=== PATIENT | female | born 1930 | race Caucasian/White ===

== ENCOUNTER 2016-09-25 15:30 | Inpatient (IN) | payer MEDICARE, BC ==
[~2016-09-25] VITALS: Ht 157.5 cm; Wt 65.3 kg
[~2016-09-25 15:30] MED LIST: ADVAIR 250-501 EACH INH; ALDACTONE25 MG PO; ASPIR 8181 MG PO; COZAAR50 MG PO; KLOR-CON M2020 MEQ PO; LASIX 40 MG TAB40 MG PO; LUTEIN-ZEAXANT1 EACH PO; METOLAZONE5 MG PO; METOPROLOL TAR100 MG PO; NYSTATIN1 EAC1 PO; PROBIOTIC1 EAC2 PO; SIMVASTATIN20 MG PO; SINGULAIR10 MG PO; SPIRIVA HANDIH18 MCG INH; SYNTHROID88 MCG PO; TOPROL XL50 MG PO; TRAVATAN Z OP; VENTOLIN/PROVE0.5 ML INH; ZYLOPRIM 100 M100 MG PO
[2016-09-25 15:57] LABS: HEMOGLOBIN 11.7 gm/dl (12.3-15.3); RED BLOOD COUNT 3.67 M/UL (4.00-5.10); WHITE BLOOD COUNT 13.5 K/UL (4.5-11.0)
[2016-09-25 16:14] LABS: BUN/CREATININE RATIO 39 (0-10)
[2016-09-26 07:33] LABS: RED BLOOD COUNT 3.17 M/UL (4.00-5.10); WHITE BLOOD COUNT 9.2 K/UL (4.5-11.0)
[2016-09-26] MEDS ORDERED: FERROUS SULFAT325 MG PO (15:14)
[2016-09-26] MEDS ORDERED: SPIRIVA HANDIH18 MCG INH (15:16)
[2016-09-27 04:35] LABS: HEMOGLOBIN 9.9 gm/dl (12.3-15.3); RED BLOOD COUNT 3.18 M/UL (4.00-5.10); WHITE BLOOD COUNT 10.7 K/UL (4.5-11.0)
[2016-09-28 04:27] LABS: RED BLOOD COUNT 3.17 M/UL (4.00-5.10); WHITE BLOOD COUNT 10.2 K/UL (4.5-11.0)
[2016-09-28] MEDS ORDERED: LEVAQUIN750 MG PO (12:01)
[2016-09-28] MEDS ORDERED: MEDROL DOSEPAK 24 MG PO (12:07)
== END 2016-09-28 13:14 | disposition home health service (06) | DRG 871 ==
LOC: ER1 15:30 → ZEROF 17:54 → PROG CARE 09-26 14:37
PROVIDERS: Emergency Medicine; ADMIT Internal Medicine
PROC: 5A09357 Assistance with Respiratory Ventilation, Less than 24 Consecutive Hours, Continuous Positive Airway Pressure (ICD-10-PCS; principal; 2016-09-25)
DX: A41.9 Sepsis, unspecified organism (principal); J96.21 Acute and chronic respiratory failure with hypoxia; J18.9 Pneumonia, unspecified organism; J44.0 Chronic obstructive pulmonary disease with (acute) lower respiratory infection; J44.1 Chronic obstructive pulmonary disease with (acute) exacerbation; I13.0 Hypertensive heart and chronic kidney disease with heart failure and stage 1 through stage 4 chronic kidney disease, or unspecified chronic kidney disease; I50.32 Chronic diastolic (congestive) heart failure; N18.3 Chronic kidney disease, stage 3 (moderate); I49.5 Sick sinus syndrome; I27.2 Other secondary pulmonary hypertension; I08.3 Combined rheumatic disorders of mitral, aortic and tricuspid valves; I48.91 Unspecified atrial fibrillation; E03.9 Hypothyroidism, unspecified; E78.5 Hyperlipidemia, unspecified; D53.9 Nutritional anemia, unspecified; M10.9 Gout, unspecified; J30.9 Allergic rhinitis, unspecified; Z95.0 Presence of cardiac pacemaker; Z87.891 Personal history of nicotine dependence; Z66 Do not resuscitate; Z99.81 Dependence on supplemental oxygen; Z79.899 Other long term (current) drug therapy; Z88.0 Allergy status to penicillin; Z88.2 Allergy status to sulfonamides; Z91.040 Latex allergy status; Z90.49 Acquired absence of other specified parts of digestive tract; Z98.890 Other specified postprocedural states; Z82.49 Family history of ischemic heart disease and other diseases of the circulatory system
CPT/HCPCS: 36415; 36600; 71010; 71020; 80048; 80053; 82550; 82553; 82803; 83605; 83735; 83874; 83880; 84439; 84443; 84484; 85025; 85027; 85610; 85730; 87040; 93005; 94640; 94660; 94664; 94760; 96374; 96375; 96376; 99285; J1956; J2920; J2930; J7040

== ENCOUNTER 2016-10-05 13:37 | Inpatient (IN) | payer OTHER ==
[~2016-10-05] VITALS: Ht 157.5 cm; Wt 73.5 kg
[~2016-10-05 13:37] MED LIST changes: +FERROUS SULFAT325 MG PO; +LEVAQUIN750 MG PO; +MEDROL DOSEPAK 24 MG PO
[2016-10-05 14:15] LABS: HEMOGLOBIN 10.1 gm/dl (12.3-15.3); RED BLOOD COUNT 3.21 M/UL (4.00-5.10); WHITE BLOOD COUNT 13.8 K/UL (4.5-11.0)
[2016-10-06 03:19] LABS: HEMOGLOBIN 10.2 gm/dl (12.3-15.3); RED BLOOD COUNT 3.28 M/UL (4.00-5.10)
[2016-10-06 03:22] LABS: WHITE BLOOD COUNT 19.8 K/UL (4.5-11.0)
[2016-10-07 03:11] LABS: HEMOGLOBIN 9.7 gm/dl (12.3-15.3); RED BLOOD COUNT 3.18 M/UL (4.00-5.10)
[2016-10-07 03:21] LABS: WHITE BLOOD COUNT 14.2 K/UL (4.5-11.0)
[2016-10-08 04:26] LABS: HEMOGLOBIN 8.9 gm/dl (12.3-15.3)
[2016-10-08 04:39] LABS: RED BLOOD COUNT 2.76 M/UL (4.00-5.10); WHITE BLOOD COUNT 10.3 K/UL (4.5-11.0)
== END 2016-10-10 14:15 | disposition expired | DRG 871 ==
LOC: ER1 13:37 → ZEROF 15:48 → ER1 15:48 → CCU 20:25
PROVIDERS: Emergency Medicine; ADMIT Internal Medicine
PROC: 02HV33Z Insertion of Infusion Device into Superior Vena Cava, Percutaneous Approach (ICD-10-PCS; 2016-10-05)
PROC: 03HB33Z Insertion of Infusion Device into Right Radial Artery, Percutaneous Approach (ICD-10-PCS; 2016-10-05)
PROC: 5A09357 Assistance with Respiratory Ventilation, Less than 24 Consecutive Hours, Continuous Positive Airway Pressure (ICD-10-PCS; principal; 2016-10-06)
DX: A41.9 Sepsis, unspecified organism (principal); R65.21 Severe sepsis with septic shock; J96.21 Acute and chronic respiratory failure with hypoxia; J18.9 Pneumonia, unspecified organism; I50.33 Acute on chronic diastolic (congestive) heart failure; J44.0 Chronic obstructive pulmonary disease with (acute) lower respiratory infection; Z51.5 Encounter for palliative care; Z66 Do not resuscitate; I48.2 Chronic atrial fibrillation; I49.5 Sick sinus syndrome; I27.2 Other secondary pulmonary hypertension; E03.9 Hypothyroidism, unspecified; I07.1 Rheumatic tricuspid insufficiency; M10.9 Gout, unspecified; J30.9 Allergic rhinitis, unspecified; Z95.810 Presence of automatic (implantable) cardiac defibrillator; Z87.891 Personal history of nicotine dependence; Z79.82 Long term (current) use of aspirin; Z79.899 Other long term (current) drug therapy; Z88.0 Allergy status to penicillin; Z88.2 Allergy status to sulfonamides; Z91.041 Radiographic dye allergy status; Z91.040 Latex allergy status; Z90.49 Acquired absence of other specified parts of digestive tract; Z98.890 Other specified postprocedural states; Z82.49 Family history of ischemic heart disease and other diseases of the circulatory system
CPT/HCPCS: ECHO; 36415; 36600; 71010; 80048; 80053; 80202; 82550; 82553; 82803; 83605; 83874; 83880; 84484; 85025; 85027; 85610; 85730; 87040; 93005; 93306; 94640; 94664; 96365; 96366; 96367; 96375; 99285; C1751; J0692; J1650; J1940; J2060; J2270; J3370; J7050; J7070